=== PATIENT | female | born 1965 | race Caucasian/White ===

== ENCOUNTER 2016-10-19 17:04 | Emergency (ER) | payer OTHER ==
[~2016-10-19] VITALS: Ht 162.6 cm; Wt 70.5 kg
[2016-10-19 17:10] VITALS: BP 137/88; PULSE 74; RESP 20; O2SAT 100
--- NOTE | 2016-10-19 17:58 | ED.REPORT ---
HPI-Extremity Problem Upper Date of Service Oct 19, 2016 ED Provider: Rajat Peterson DO A 51 year old female with a medical history including arthritis presents to the ED accompanied by her family with a left hand injury after cutting herself with a chain saw just prior to arrival. The patient presents with superficial lacerations to the fingers on her left hand. She denies hand numbness, hand tingling, or other symptoms. Nursing Notes Stated Complaint: HAND CAME IN CONTACT WITH A CHAIN SAW Chief Complaint: Extremity Trauma Nursing Notes Reviewed: Yes Allergies: Coded Allergies: No Known Allergies (Unverified Allergy, Unknown, 10/19/16) General Time Seen by MD: 17:54 Chief Complaint Hand Injury left Hx Obtained From: Patient Arrived By: Walk-in Onset Occurred: Just prior to arrival Symptom Duration: Since onset Caused by: Accidental Location: : Hand left Quality: Painful Severity: Current: Moderate Severity: Maximum: Moderate Pertinent Negative: Relieved by nothing Immunizations: Unknown Recent Healthcare: No recent doctor visit Similar Sx Previous: No Past Medical History Past Medical History Arthritis Nephrolithiasis Reports: GERD Past Surgical History Reports: Reports: Tubal ligation Smoking History Former Smoker Social History Alcohol Use: "Social" Other Social History: Good social support, , Local resident Ambulatory Status Independent Review of Systems Review of Systems Note: + Superficial lacerations to the fingers on left hand - Hand tingling Constitutional: Denies: Fever Musculoskeletal: Reports: Extremity pain (Left hand) Neurologic: Denies: Numbness Complete sys rev & neg: except as marked. Physical Exam Initial Vital Signs Vital Signs (First) Date Time Temp Pulse Resp B/P Pulse Ox O2 Delivery O2 Flow Rate FiO2 10/19/16 17:10 35.7 74 20 137/88 100 10/19/16 20:05 Room Air Initial VS: Reviewed Head / Eyes: Atraumatic, Normocephalic ENT: Conjunctiva normal, No scleral icterus Neck: Supple, Full range of motion Skin: Warm, Dry, No cyanosis Neurologic: Alert, Oriented, Nonfocal Psychiatric: Mood/affect normal, Behavior normal, Normal thought content General/Constitutional: Awake, Alert Wrist / Hand: Full range of motion, Neurologic intact, Vascular intact, Tendon function NL Trauma / Burn / Environmental: Positive: Laceration (Superficial, palmar aspect of proximal phalanx across left fifth finger and third finger, another to dorsum of hand) Interpretation & Diagnostics X-Ray Interpretation Xray Interpretation: IMPRESSION: 1. No fracture or radiopaque foreign bodies. Dictated by: Jay Arizmendi M.D. on 10/19/2016 at 18:24 Study Performed: 3 View X-Ray Ordered: Hand left Interpretation / Wet Read by: Interpret - Radiologist Procedures Laceration Management Time: 18:43 Procedure Performed by: ED physician Consent / Setup / Site Prep: Consent from patient Location of Wound: 1.5cm, palmar aspect of proximal phalanx across fifth finger Local Anesthesia: Lidocaine 2% Wound Preparation: Normal saline Irrigation: Copious Repair Skin: ___ O (5), Nylon # Sutures - Skin: 1 (PIP joint), 4 (Base of MCP joint) Closure Layers: 1 Suture Technique: Simple Post-Procedure / Complications: Antibiotic oint applied, Dressing applied, No complications, Condition improved, Tolerated procedure well, Patient stable Re-Eval/Medical Decision Med Decision/Clinical Course Very superficial laceration to the hand related to chain saw, tendons are intact, tetanus was updated today. The pinky finger was sutured. Return and follow-up precautions given. Source of Hx: Old records Re-Evaluation/Progress : Time of Eval: 19:36 Patient Status: Condition improved Re-Evaluation/Progress Note: Discussed with patient laceration management results, x-ray, diagnosis, and plan for discharge. Follow-up and return to the ER instructions given. Patient agrees with plan for care and all questions were addressed. Counseled Regarding: Diagnosis, Need for follow-up, When/why to return to ED Discharge & Departure Impression: Primary Impression: Finger laceration Encounter type: initial encounter Qualified Code: S61.219A - Laceration without foreign body of unspecified finger without damage to nail, initial encounter Disposition: Home Discharge Condition All VS Reviewed: Yes Condition: Improved Patient Instructions: Finger Laceration (ED) Additional Instructions: Thank you for entrusting us with your care. Apply antibiotic ointment and a clean bandage as well as a finger splint daily. Your sutures will need to be removed in 7-10 days. You can return to the ER, visit Urgent Care, or see your PCP for this. Call your primary care provider tomorrow for a follow-up appointment. Return to the ER with any new or worsening symptoms including redness, swelling , or worsening pain. Referrals: Estefania Christensen MD (PCP) Ayleen Dugan Attestation Portions of this note were transcribed by Karina Doe. I, Dr. Peterson, personally performed the history, physical exam, and medical decision-making; I reviewed and confirmed the accuracy of the information in the transcribed note. Signed by: Jazlyn Sullivan, 10/19/2016, 20:17 copies to: Ayleen Dugan DO; Estefania Christensen MD, Timothy S DO Oct 19, 2016 17:58 KARINA DOE Oct 19, 2016 18:09
[2016-10-19] MEDS ORDERED: Lidocaine 1% 50 mL Inj NERVEBLOCK ONE (18:20)
[2016-10-19] MEDS ORDERED: TdaP Vaccine 0.5 mL Inj IM ONE (18:20)
--- NOTE | 2016-10-19 18:29 | DRSVH ---
PROCEDURE: X-RAY LEFT HAND, MINIMUM THREE VIEWS ([id number]) INDICATIONS: Pain TECHNIQUE: 4 views of the hand(s) acquired. COMPARISON: None. FINDINGS: Bones: No fractures or dislocations. Carpal bones are normally aligned. No suspicious bony lesions . Soft tissues: No radiopaque foreign bodies. No suspicious soft tissue calcifications. IMPRESSION: 1. No fracture or radiopaque foreign bodies. Dictated by: Jay Arizmendi M.D. on 10/19/2016 at 18:24 Approved by: Jay Arizmendi M.D. on 10/19/2016 at 18:28
[2016-10-19 20:05] VITALS: BP 130/80; PULSE 70; RESP 18; O2SAT 100
== END 2016-10-19 20:05 | disposition home or self-care (01) ==
LOC: SED 17:04
DX: S61.217A Laceration without foreign body of left little finger without damage to nail, initial encounter (principal); W29.3XXA Contact with powered garden and outdoor hand tools and machinery, initial encounter; Y93.89 Activity, other specified; Y92.9 Unspecified place or not applicable; Y99.8 Other external cause status; K21.9 Gastro-esophageal reflux disease without esophagitis; Z87.891 Personal history of nicotine dependence; Z23 Encounter for immunization